=== PATIENT | male | born 1995 | race African-American/Black ===

== ENCOUNTER 2019-02-19 21:02 | Inpatient (IN) | payer MEDICAID ==
[~2019-02-19] VITALS: Ht 170.2 cm; Wt 77.7 kg
[2019-02-19] MEDS ORDERED: AZIT250T13 PO (21:10)
[2019-02-19] MEDS ORDERED: ACETAMINOPHEN 650 MG SUPP.RECT RC ONE ×3 (21:45→21:58)
[2019-02-19] MEDS ORDERED: IV NORMAL SALINE 1000 ML BAG IV ONE (21:45)
[2019-02-19] MEDS ORDERED: ONDANSETRON 4 MG/2 ML VIAL IV ONE (21:45)
[2019-02-19] MEDS ORDERED: ACETAMINOPHEN ES 500 MG TABLET ONE (22:04)
[2019-02-19 22:14] LABS: BASOPHILS % (AUTO) 0.3 % (0.0-2.0); EOSINOPHILS % (AUTO) 0.1 % (0.0-7.0); HEMATOCRIT 49.6 % (36.7-47.1); HEMOGLOBIN 16.2 g/dL (12.5-16.3); LYMPHOCYTES % (AUTO) 13.6 % (20.5-51.5); MEAN CORPUSCULAR HEMOGLOBIN 30.6 uug (23.8-33.4); MEAN CORPUSCULAR HGB CONC 33 g/dL (32.5-36.3); MEAN CORPUSCULAR VOLUME 93.9 fL (73.0-96.2); MONOCYTES % (AUTO) 13.2 % (0.0-11.0); NEUTROPHILS # (AUTO) 5.3 K/uL (1.8-8.9); NEUTROPHILS % (AUTO) 72.8 % (38.5-71.5); PLATELET COUNT (AUTO) 146 K/uL (152-348); RED BLOOD CELL COUNT(AUTO) 5.28 MIL/uL (4.06-5.63); WHITE BLOOD COUNT (AUTO) 7.3 K/uL (3.6-10.2)
[2019-02-19] MEDS ORDERED: DEXAMETHASONE SOD PHOSPHATE 4 MG INJ IV ONE (22:15)
[2019-02-19] MEDS ORDERED: CEFTRIAXONE 2 G in IV DEXTROSE 5% 100 ML IV ONE (22:15)
[2019-02-19 22:20] LABS: CREATININE 1.5 mg/dL (0.6-1.3); POTASSIUM 3.7 mmol/L (3.5-5.1)
[2019-02-19] MEDS ORDERED: CEFTRIAXONE /D5W 50ML IVPB **ER PYXIS IV ONE (22:20)
[2019-02-19] MEDS ORDERED: DEXAMETHASONE SOD PHOSPHATE 10 MG INJ ONE (22:21)
[2019-02-19 22:26] LABS: BILIRUBIN,DIRECT 0.2 mg/dL (0.0-0.2); BILIRUBIN,TOTAL 0.9 mg/dL (0.2-1.0); TOTAL PROTEIN, SERUM 7.9 g/dL (6.4-8.2)
[2019-02-19] MEDS ORDERED: ACETAMINOPHEN ES 500 MG TABLET PO ONE (22:30)
[2019-02-19] MEDS ORDERED: MORPHINE SULFATE 4 MG/1 ML DISP.SYRIN IV ONE (22:30)
[2019-02-19] MEDS ORDERED: MORPHINE SULFATE 4 MG/1 ML DISP.SYRIN ONE (22:56)
[2019-02-19] MEDS ORDERED: OSELTAMIVIR PHOSPHATE 75 MG CAPSULE PO ONE (23:15)
--- NOTE | 2019-02-19 23:20 | NUR ---
2L NS done infusing
[2019-02-19] MEDS ORDERED: OSELTAMIVIR PHOSPHATE 75 MG CAPSULE ONE (23:24)
--- NOTE | 2019-02-19 23:35 | NUR ---
Rocephin 2g done infusing
[2019-02-20] MEDS ORDERED: ACETAMINOPHEN 325 MG TABLET PO PRN (02:15)
[2019-02-20] MEDS ORDERED: IV NS 1000 ML 1,000 ML IV PRN (02:15)
[2019-02-20] MEDS ORDERED: ZOLPIDEM 5 MG TABLET PO PRN (02:15)
[2019-02-20] MEDS ORDERED: ONDANSETRON 4 MG/2 ML VIAL IV PRN (02:15)
[2019-02-20] MEDS ORDERED: HYDROCODONE/APAP 5-325MG TABLET PO PRN (02:15)
[2019-02-20 02:16] VITALS: BP 124/75
--- NOTE | 2019-02-20 02:25 | NUR ---
Admitting Notes Patient received into care via gurney from ER with girlfriend at side. Patient is alert/oriented x4 and has no complaints of pain or discomfort at this time. IV site in left AC is patent and intact. Patient has no PMH and cooperative and in good spirits. All safety and fall precaution measures are in place. Call light and personal items are within reach at all times. Will continue to monitor and assess.
[2019-02-20 05:51] VITALS: BP 120/64
--- NOTE | 2019-02-20 06:09 | NUR ---
Patient rested comfortably following admission to unit. All prescribed fluids provided as ordered and are currently infusing in left AC via 18g IV cath. All safety and fall precaution measures remain in place. Call light and personal items are within reach at all times.
[2019-02-20 06:39] LABS: BASOPHILS % (AUTO) 0.2 % (0.0-2.0); HEMATOCRIT 50.1 % (36.7-47.1); HEMOGLOBIN 16.4 g/dL (12.5-16.3); LYMPHOCYTES # (AUTO) 0.6 K/uL (20.0-40.0); LYMPHOCYTES % (AUTO) 10.2 % (20.5-51.5); MEAN CORPUSCULAR HEMOGLOBIN 30.2 uug (23.8-33.4); MEAN CORPUSCULAR HGB CONC 33 g/dL (32.5-36.3); MONOCYTES # (AUTO) 0.1 K/uL (2.0-10.0); MONOCYTES % (AUTO) 1.8 % (0.0-11.0); NEUTROPHILS # (AUTO) 5.4 K/uL (1.8-8.9); NEUTROPHILS % (AUTO) 87.8 % (38.5-71.5); PLATELET COUNT (AUTO) 172 K/uL (152-348); RED BLOOD CELL COUNT(AUTO) 5.45 MIL/uL (4.06-5.63); WHITE BLOOD COUNT (AUTO) 6.2 K/uL (3.6-10.2)
[2019-02-20 06:55] LABS: BILIRUBIN,TOTAL 0.7 mg/dL (0.2-1.0); CREATININE 1.5 mg/dL (0.6-1.3); MAGNESIUM 2.2 mg/dL (1.8-2.4); POTASSIUM 4.7 mmol/L (3.5-5.1); TOTAL PROTEIN, SERUM 8.1 g/dL (6.4-8.2)
[2019-02-20] MEDS ORDERED: ONDANSETRON 4 MG/2 ML VIAL ONE (07:12)
[2019-02-20] MEDS ORDERED: PANTOPRAZOLE SODIUM 40 MG TABLET.DR PO SCH (07:30)
--- NOTE | 2019-02-20 07:30 | NUR ---
PATIENT RESTING COMFORTABLY IN BED. IVF RUNNING. NO COMPLAINTS OF PAIN. TEMPERATURE TAKEN - AFEBRILE. STABLE CONDITION. SAFETY MEASURES IMPLEMENTED. DROPLET PRECAUTIONS IMPLEMENTED. WILL CONTINUE TO MONITOR THROUGHOUT SHIFT.
[2019-02-20] MEDS ORDERED: OSELTAMIVIR PHOSPHATE 75 MG CAPSULE PO SCH (09:00)
[2019-02-20 11:16] VITALS: BP 125/80
[2019-02-20] MEDS ORDERED: IV 1/2NS 1000 ML 1,000 ML IV PRN (11:30)
[2019-02-20] MEDS ORDERED: OSEL75CA PO (13:55)
--- NOTE | 2019-02-20 14:25 | NUR ---
PATIENT DISCHARGED AT THIS TIME IN STABLE CONDITION. MEDICALLY CLEARED BY MD FOR DISCHARGE. PRESCRIPTIONS AND DISCHARGE PACKET GIVEN TO PATIENT. IV-ACCESS DISCONNECTED, ID BAND TAKEN OFF. PATIENT'S GIRLFRIEND IS PATIENT'S FORM OF TRANSPORTATION. PATIENT DISCHARGED FROM HOSPITAL SAFELY.
== END 2019-02-20 14:25 | disposition home or self-care (01) | DRG 720 ==
LOC: ER 21:08 → MEDSURG3 23:55
PROVIDERS: ADMIT Internal Medicine; ATTEND Internal Medicine
DX: A41.89 Other specified sepsis (principal); N17.0 Acute kidney failure with tubular necrosis; G92 Toxic encephalopathy; D69.6 Thrombocytopenia, unspecified; E86.0 Dehydration; J10.1 Influenza due to other identified influenza virus with other respiratory manifestations; R65.20 Severe sepsis without septic shock; Z82.49 Family history of ischemic heart disease and other diseases of the circulatory system
CPT/HCPCS: 36415; 70030-TC; 71045; 83605; 83735; 84100; 85025; 85730; 86403; 87040; 87070; 87400; A4663; A9150; G0378; J0696; J1100; J2270; J2405; J3490; J7030